=== PATIENT | male | born 1960 | race Native Hawaiian/Other Pacific Islander ===

== ENCOUNTER 2019-06-07 11:11 | Outpatient (CLI) | payer BC, OTHER | END 2019-06-07 23:59 | disposition home or self-care (01) | LOC: XRAY 11:11 | PROVIDERS: ATTEND Family Medicine | DX: M77.31 Calcaneal spur, right foot (principal); M77.51 Other enthesopathy of right foot and ankle | CPT/HCPCS: 73650 ==

== ENCOUNTER → 2019-09-30 | Outpatient (CLI) | payer BC, OTHER ==
[~2019-09-30] MED LIST: ASPI81TA31 PO; ENAL10TA PO; GLIM2TAB PO; METF1000 PO; PRAV20TA4 PO
[2019-09-30 09:09] LABS: BASOPHILS % (AUTO) 0.4 % (0.0-2.0); EOSINOPHILS # (AUTO) 0.2 K/uL (0.0-0.7); EOSINOPHILS % (AUTO) 3.2 % (0.0-7.0); HEMATOCRIT 43.5 % (36.7-47.1); HEMOGLOBIN 14.6 g/dL (12.5-16.3); LYMPHOCYTES % (AUTO) 38.4 % (20.5-51.5); MEAN CORPUSCULAR HEMOGLOBIN 30.5 uug (23.8-33.4); MEAN CORPUSCULAR HGB CONC 34 g/dL (32.5-36.3); MEAN CORPUSCULAR VOLUME 90.7 fL (73.0-96.2); MONOCYTES # (AUTO) 0.4 K/uL (2.0-10.0); MONOCYTES % (AUTO) 7.4 % (0.0-11.0); NEUTROPHILS # (AUTO) 2.7 K/uL (1.8-8.9); NEUTROPHILS % (AUTO) 50.6 % (38.5-71.5); PLATELET COUNT (AUTO) 193 K/uL (152-348); RED BLOOD CELL COUNT(AUTO) 4.79 MIL/uL (4.06-5.63); WHITE BLOOD COUNT (AUTO) 5.3 K/uL (3.6-10.2)
[2019-09-30 09:25] LABS: THYROID STIMULATING HORMONE 0.909 mIU/mL (0.358-3.740)
[2019-09-30 10:59] LABS: BILIRUBIN,TOTAL 0.6 mg/dL (0.2-1.0); POTASSIUM 3.9 mmol/L (3.5-5.1); TOTAL PROTEIN, SERUM 7.8 g/dL (6.4-8.2)
== END | disposition home or self-care (01) ==
LOC: LAB 08:19
PROVIDERS: ATTEND Family Medicine
DX: E11.65 Type 2 diabetes mellitus with hyperglycemia (principal); E55.9 Vitamin D deficiency, unspecified; M75.91 Shoulder lesion, unspecified, right shoulder
CPT/HCPCS: 36415; 82306; 84443; 85025

== ENCOUNTER 2020-03-13 06:27 | Outpatient (CLI) | payer BC, OTHER ==
[~2020-03-13 06:27] MED LIST changes: +ENAL-80 PO; -ENAL10TA PO
[2020-03-13 07:01] LABS: BASOPHILS % (AUTO) 0.4 % (0.0-2.0); EOSINOPHILS # (AUTO) 0.3 K/uL (0.0-0.7); EOSINOPHILS % (AUTO) 5.9 % (0.0-7.0); HEMATOCRIT 42.4 % (36.7-47.1); HEMOGLOBIN 14.5 g/dL (12.5-16.3); LYMPHOCYTES # (AUTO) 1.9 K/uL (20.0-40.0); LYMPHOCYTES % (AUTO) 35.8 % (20.5-51.5); MEAN CORPUSCULAR HEMOGLOBIN 30.4 uug (23.8-33.4); MEAN CORPUSCULAR HGB CONC 34 g/dL (32.5-36.3); MEAN CORPUSCULAR VOLUME 88.9 fL (73.0-96.2); MONOCYTES # (AUTO) 0.4 K/uL (2.0-10.0); MONOCYTES % (AUTO) 6.7 % (0.0-11.0); NEUTROPHILS # (AUTO) 2.7 K/uL (1.8-8.9); NEUTROPHILS % (AUTO) 51.2 % (38.5-71.5); PLATELET COUNT (AUTO) 187 K/uL (152-348); RED BLOOD CELL COUNT(AUTO) 4.77 MIL/uL (4.06-5.63); WHITE BLOOD COUNT (AUTO) 5.3 K/uL (3.6-10.2)
[2020-03-13 07:06] LABS: *BILIRUBIN,URIN NEGATIVE (NEGATIVE); *BLOOD, URINE NEGATIVE (NEGATIVE); *CLARITY,URINE CLEAR (CLEAR); *COLOR,URINE YELLOW (YELLOW); *KETONES,URINE NEGATIVE (NEGATIVE); *UROBILINOGEN,URINE 0.2 E.U./dl (NORMAL); LEUKOCYTE ESTERASE ,URINE NEGATIVE (NEGATIVE); NITRITE, URINE NEGATIVE (NEGATIVE); UGLUCOSE NEGATIVE (NEGATIVE)
[2020-03-13 07:32] LABS: BILIRUBIN,TOTAL 0.8 mg/dL (0.2-1.0); CREATININE 0.9 mg/dL (0.6-1.3); POTASSIUM 4.2 mmol/L (3.5-5.1); THYROID STIMULATING HORMONE 1.466 mIU/mL (0.358-3.740); TOTAL PROTEIN, SERUM 7.7 g/dL (6.4-8.2)
== END 2020-03-13 23:59 | disposition home or self-care (01) ==
LOC: LAB 06:27
PROVIDERS: ATTEND Family Medicine
DX: I10 Essential (primary) hypertension (principal); E11.65 Type 2 diabetes mellitus with hyperglycemia; E11.42 Type 2 diabetes mellitus with diabetic polyneuropathy; K21.9 Gastro-esophageal reflux disease without esophagitis; E55.9 Vitamin D deficiency, unspecified
CPT/HCPCS: 82043; 82306; 82570; 84443; 85025

== ENCOUNTER 2020-08-07 16:24 | Emergency (ER) | payer BC, OTHER ==
[~2020-08-07] VITALS: Ht 162.6 cm; Wt 74.4 kg
--- NOTE | 2020-08-07 16:30 | NUR ---
MD at bedside for assessment, patient's right handed pinky finger noted with laceration, patient states he pinched it with wood
[2020-08-07] MEDS ORDERED: TDAP DIPH,PERTUSS,TET VAC/PF 0.5 ML DISP.SYRIN IM ONE ×2 (17:00→17:12)
--- NOTE | 2020-08-07 17:18 | NUR ---
finger laceration irrigated with normal saline and glued with dermabond
--- NOTE | 2020-08-07 17:26 | NUR ---
Patient discharged to home in stable condition. No signs of acute distress. Written and verbal after care instructions given. Patient verbalizes understanding of instructions. Stressed follow up or return to ER for worsening s/s.
[2020-08-07 17:27] VITALS: BP 124/85
== END 2020-08-07 17:20 | disposition home or self-care (01) ==
LOC: ER 16:29
DX: S61.206A Unspecified open wound of right little finger without damage to nail, initial encounter (principal); V91.19XA Crushed between unspecified watercraft and other watercraft or other object due to collision, initial encounter; Y92.89 Other specified places as the place of occurrence of the external cause; E11.9 Type 2 diabetes mellitus without complications; Z79.84 Long term (current) use of oral hypoglycemic drugs; Z79.82 Long term (current) use of aspirin
CPT/HCPCS: 73140; 90715; A4663

== ENCOUNTER 2021-07-29 14:07 | Emergency (ER) | payer OTHER ==
[~2021-07-29] VITALS: Ht 162.6 cm; Wt 71.7 kg
--- NOTE | 2021-07-29 14:29 | NUR ---
PT SEEN AND EVALUATED BY DR PADILLA. PCX DONE ON LEFT KNEE.
[2021-07-29] MEDS ORDERED: NEOMY/BACITRA/POLYMYXIN B OINT UD PACKET TP ONE (14:45)
[2021-07-29] MEDS ORDERED: BACITRACIN ZINC OINT 15 GM TUBE ONE (14:56)
== END 2021-07-29 16:00 | disposition home or self-care (01) ==
LOC: ER 14:07
DX: S80.211A Abrasion, right knee, initial encounter (principal); W01.0XXA Fall on same level from slipping, tripping and stumbling without subsequent striking against object, initial encounter; Y92.89 Other specified places as the place of occurrence of the external cause; M25.462 Effusion, left knee; M25.562 Pain in left knee; M25.561 Pain in right knee; E11.9 Type 2 diabetes mellitus without complications; E78.5 Hyperlipidemia, unspecified; I10 Essential (primary) hypertension; Z79.84 Long term (current) use of oral hypoglycemic drugs; Z79.82 Long term (current) use of aspirin; Z79.899 Other long term (current) drug therapy
CPT/HCPCS: A4663

== ENCOUNTER 2023-08-09 21:48 | Emergency (ER) | payer BC, OTHER ==
[~2023-08-09] VITALS: Ht 162.6 cm; Wt 72.6 kg
[2023-08-09] MEDS ORDERED: AMOXICILLIN-CLAVUL 875-125MG TABLET ONE (22:20)
[2023-08-09] MEDS ORDERED: KETOROLAC TROMETHAMINE 30 MG INJ ONE (22:20)
[2023-08-09] MEDS ORDERED: OXYC5TAB3 PO (22:25)
[2023-08-09] MEDS ORDERED: AMOX-430 PO (22:25)
[2023-08-09] MEDS: KETOROLAC TROMETHAMINE 30 MG INJ IM ONE (22:26)
[2023-08-09] MEDS: AMOXICILLIN-CLAVUL 875-125MG TABLET PO ONE (22:27)
[2023-08-09 22:29] VITALS: BP 150/93; O2SAT 97
== END 2023-08-09 22:29 | disposition home or self-care (01) ==
LOC: ER 21:51
DX: K04.7 Periapical abscess without sinus (principal); K04.01 Reversible pulpitis; I10 Essential (primary) hypertension; E78.5 Hyperlipidemia, unspecified; E11.9 Type 2 diabetes mellitus without complications; Z79.82 Long term (current) use of aspirin; Z79.899 Other long term (current) drug therapy
CPT/HCPCS: 99283; 96372; J1885; A4606; A4663

== ENCOUNTER 2024-05-15 13:55 | Emergency (ER) | payer BC, OTHER ==
[~2024-05-15] VITALS: Ht 167.6 cm; Wt 77.1 kg
[~2024-05-15 13:55] MED LIST changes: +AMOX-430 PO; +OXYC5TAB3 PO
[2024-05-15] MEDS ORDERED: NABU-140 PO (14:37)
[2024-05-15] MEDS ORDERED: CYCL5TAB PO (14:37)
[2024-05-15 14:48] VITALS: BP 126/71; O2SAT 99
== END 2024-05-15 14:48 | disposition home or self-care (01) ==
LOC: ER 14:05
DX: M54.6 Pain in thoracic spine (principal); M54.2 Cervicalgia; K08.89 Other specified disorders of teeth and supporting structures; E11.9 Type 2 diabetes mellitus without complications; E78.5 Hyperlipidemia, unspecified; I11.9 Hypertensive heart disease without heart failure; Z79.82 Long term (current) use of aspirin; Z79.84 Long term (current) use of oral hypoglycemic drugs; Z79.899 Other long term (current) drug therapy; Z88.7 Allergy status to serum and vaccine
CPT/HCPCS: 72072; 72100; A4606; A4663